=== PATIENT | female | born 1960 | race Caucasian/White ===

== ENCOUNTER → 2018-08-07 | Outpatient (CLI) | payer BC ==
[~2018-08-07] MED LIST: ADVIL200 MG PO; AMBIEN 10MG10 MG PO; BACTRIM DS 8001 TAB PO; NKDA; NORCO 325 MG-7.1 TAB PO; PERCOCET 325 MG1 TA2 PO; ROLAIDS220 M1 PO
== END ==
LOC: MC.RAD 07:00
DX: Z12.31 Encounter for screening mammogram for malignant neoplasm of breast (principal); Z98.82 Breast implant status

== ENCOUNTER → 2019-07-27 | Outpatient (CLI) | payer BC | LOC: MC.RAD 09:21 | DX: Z12.31 Encounter for screening mammogram for malignant neoplasm of breast (principal); Z98.84 Bariatric surgery status ==

== ENCOUNTER → 2020-06-22 | Outpatient (CLI) | payer BC | LOC: MC.RAD 08:03 | DX: Z12.31 Encounter for screening mammogram for malignant neoplasm of breast (principal); Z98.82 Breast implant status ==

== ENCOUNTER → 2021-08-13 | Outpatient (CLI) | payer BC | LOC: MC.RAD 10:40 | DX: Z12.31 Encounter for screening mammogram for malignant neoplasm of breast (principal); Z98.82 Breast implant status ==

== ENCOUNTER → 2023-08-13 | Outpatient (CLI) | payer BC | LOC: MC.RAD 11:15 | DX: Z12.31 Encounter for screening mammogram for malignant neoplasm of breast (principal) ==